=== PATIENT | female | born 1960 | race Caucasian/White ===

== ENCOUNTER 2021-09-01 08:27 | Day surgery (SDC) | payer MEDICARE, OTHER ==
[2021-08-28 09:54] VITALS: BMI 41.1
[~2021-09-01 08:27] MED LIST: LACTATED RINGERS 1,000 ML IV SCH; LIDOCAINE 1% (10MG/ML) FOR IV START INTRADERMA PRN
[2021-09-01 08:55] VITALS: TEMP 97.7
[2021-09-01] MEDS ORDERED: PROPOFOL 10 MG/ML 20 ML VIAL IV ONE (09:03)
--- NOTE | 2021-09-01 09:07 | P.GSHP ---
History of Present Illness H&P Date: 09/01/21 Chief Complaint: Colon cancer screening 61-year-old female here today for colonoscopy. Last colonoscopy 10 years ago. No bowel complaints. No family history of colon cancer. Past Medical History Past Medical History: Hypertension History of Any Multi-Drug Resistant Organisms: None Reported Past Surgical History: No Surgical Hx Reported Additional Past Surgical History / Comment(s): colonoscopy Past Anesthesia/Blood Transfusion Reactions: Motion Sickness Smoking Status: Never smoker Medications and Allergies Home Medications Medication Instructions Recorded Confirmed Type Biotin 5 mg PO DAILY 08/28/21 09/01/21 History Krill Oil 500 mg PO DAILY 08/28/21 09/01/21 History Lisinopril-Hctz 20-12.5 mg 1 tab PO DAILY 08/28/21 09/01/21 History [Zestoretic 20-12.5] Magnesium 200 mg PO DAILY 08/28/21 09/01/21 History Milk Thistle 150 mg PO DAILY 08/28/21 09/01/21 History Niacin 1,000 mg PO DAILY 08/28/21 09/01/21 History Plant Stanol Hillary [Cholest Off] 450 mg PO DAILY 08/28/21 09/01/21 History Turmeric Root Extract [Turmeric] 500 mg PO DAILY 08/28/21 09/01/21 History Allergies Allergy/AdvReac Type Severity Reaction Status Date / Time No Known Allergies Allergy Verified 09/01/21 08:56 Surgical - Exam Vital Signs Temp Pulse Resp BP Pulse Ox 97.7 F 76 16 165/87 98 09/01/21 08:53 09/01/21 08:53 09/01/21 08:53 09/01/21 08:53 09/01/21 08:53 Physical exam: General: Well-developed, well-nourished HEENT: Normocephalic, sclerae nonicteric Abdomen: Nontender, nondistended Extremities: No edema Neuro: Alert and oriented Assessment and Plan (1) Colon cancer screening Narrative/Plan: Will proceed with colonoscopy at this time Current Visit: Yes Status: Acute Code(s): Z12.11 - ENCOUNTER FOR SCREENING FOR MALIGNANT NEOPLASM OF COLON SNOMED Code(s): 275964844
[2021-09-01] MEDS ORDERED: IV FLUID CONTINUATION 1,000 ML IV ONE (09:26)
--- NOTE | 2021-09-01 09:27 | P.PCN ---
Date of Procedure: 09/01/21 Procedure(s) Performed: PREOPERATIVE DIAGNOSIS: Colon cancer screening POSTOPERATIVE DIAGNOSIS: Mild diverticulosis PROCEDURE: Colonoscopy ANESTHESIA: MAC SURGEON: Rhys Jo M.D. SPECIMENS: None ENDOSCOPIC PROCEDURE: The patient was placed on the endoscopy table in the left decubitus position. The Olympus colonoscope was inserted into the anus and passed under direct visualization to the base of the cecum. The appendiceal orifice was visualized. From that point the scope was slowly withdrawn inspecting all surfaces carefully. There were no neoplastic inflammatory or polypoid lesions throughout the cecum, ascending, transverse, descending, sigmoid and rectum. There was mild scattered diverticulosis noted. Digital rectal examination was normal. The patient was taken to the recovery room in stable condition per anesthesia guidelines. RECOMMENDATIONS: Resume diet. Follow colonoscopy in 10 years.
[2021-09-01 09:33] VITALS: RESP 18
[2021-09-01 09:51] VITALS: BP 110/67; PULSE 78
== END 2021-09-01 10:07 | disposition home or self-care (01) ==
LOC: ORWHC2ENDO 08:27
PROVIDERS: ATTEND Surgery
DX: Z12.11 Encounter for screening for malignant neoplasm of colon (principal); K57.30 Diverticulosis of large intestine without perforation or abscess without bleeding; I10 Essential (primary) hypertension; E78.5 Hyperlipidemia, unspecified; K21.9 Gastro-esophageal reflux disease without esophagitis; E66.9 Obesity, unspecified; Z68.41 Body mass index [BMI] 40.0-44.9, adult; Z98.890 Other specified postprocedural states; Z79.899 Other long term (current) drug therapy
CPT/HCPCS: J2704; G0121